=== PATIENT | male | born 1975 | race African-American/Black ===

== ENCOUNTER 2018-01-15 17:04 | Emergency (ER) | payer OTHER ==
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
[2018-01-15 18:25] VITALS: BP 153/99
== END 2018-01-15 18:24 | disposition home or self-care (01) ==
LOC: ER 17:04
DX: S16.1XXA Strain of muscle, fascia and tendon at neck level, initial encounter (principal); M54.2 Cervicalgia; V43.12XA Car passenger injured in collision with other type car in nontraffic accident, initial encounter; Y92.481 Parking lot as the place of occurrence of the external cause; F17.200 Nicotine dependence, unspecified, uncomplicated
CPT/HCPCS: 99283